=== PATIENT | female | born 1990 | race Caucasian/White ===

== ENCOUNTER → 2021-12-14 | Outpatient (CLI) | payer MEDICARE ==
[~2021-12-14] MED LIST: COLACE 100MG C100 MG PO; IBUPROFEN600 MG PO; LABETALOL HCL200 MG PO; LORTAB 5-325 M1 EACH PO; PLAQUENIL 200200 MG PO
[2021-12-14 13:21] LABS: HEMOGLOBIN 11.9 gm/dl (12.3-15.3); WHITE BLOOD COUNT 4.9 K/UL (4.5-11.0)
[2021-12-14 13:47] LABS: BUN/CREATININE RATIO 18 (0-10)
[2021-12-15 08:12] LABS: HBSAG SCREEN Negative (Negative); RUBELLA ANTIBODIES, IGG 8.07 index (Immune >0.99)
[2021-12-15 14:11] LABS: TREPONEMA PALLIDUM ANTIBODIES Non Reactive (Non Reactive)
[2021-12-16 09:09] LABS: HCV AB <0.1 (0.0-0.9)
== END ==
LOC: LAB 11:34
PROVIDERS: Nurse Practitioner
DX: Z34.80 Encounter for supervision of other normal pregnancy, unspecified trimester (principal)
CPT/HCPCS: 36415; 80053; 83615; 84550; 85025; 85379; 85384; 86762; 86780; 86803; 86900; 86901; 87340